=== PATIENT | male | born 1945 | race Caucasian/White ===

== ENCOUNTER → 2017-06-02 | Outpatient (CLI) | payer BC | END | disposition home or self-care (01) | LOC: US 12:09 | DX: I87.2 Venous insufficiency (chronic) (peripheral) (principal); I48.0 Paroxysmal atrial fibrillation; M71.21 Synovial cyst of popliteal space [Baker], right knee; M71.22 Synovial cyst of popliteal space [Baker], left knee; I34.0 Nonrheumatic mitral (valve) insufficiency; I12.9 Hypertensive chronic kidney disease with stage 1 through stage 4 chronic kidney disease, or unspecified chronic kidney disease; I50.9 Heart failure, unspecified | CPT/HCPCS: 93306; 93970 ==

== ENCOUNTER 2017-11-07 08:14 | Outpatient (CLI) | payer BC ==
[~2017-11-07] VITALS: Ht 177.8 cm; Wt 128.8 kg
[2017-11-07] VITALS (9 sets, daily range): BP systolic 137–167; BP diastolic 68–90
[~2017-11-07 08:14] MED LIST: ACET325T9 PO; AMIO200T4 PO; ASPI-482 PO; ASPI-630 PO; CALC600T PO; CALC600T4 PO; CELE200C PO; CHOL400D6 PO; DABI150C PO; FURO-68 PO; LISI-334 PO; METO-239 PO; METO25TA4 PO; MULT-245 PO; OXYC-323 PO; PANT40TA5 PO; POTA20TA82 PO; TAMS0.4C97 PO; VERA360C2 PO; WARF-31 PO; [UNRECOGNIZED DRUG - OTHER]
[2017-11-07] MEDS ORDERED: APIX5TAB PO (08:52)
[2017-11-07 08:55] LABS: BASO % 1 % (0-3); EOS # 0.1 x10^3/uL (0.0-0.7); EOS % 1 % (0-3); HEMATOCRIT 48.4 % (39.0-53.0); HEMOGLOBIN 16.8 g/dL (13.0-17.5); LYMPH # 0.6 x10^3/uL (1.0-4.8); LYMPH % 9 % (24-48); MEAN CORPUSCULAR HEMOGLOBIN 31 pg (25-35); MEAN CORPUSCULAR HGB CONC 35 g/dL (31-37); MEAN CORPUSCULAR VOLUME 90 fL (79-100); MONO # 0.6 x10^3/uL (0.0-1.1); MONO % 9 % (0-9); NEUT # 5.5 x10^3uL (1.8-7.7); NEUT % 81 % (31-73); PLATELET COUNT 152 x10^3/uL (140-400); RED CELL DISTRIBUTION WIDTH 13.1 % (11.5-14.5); WHITE BLOOD COUNT 6.8 x10^3/uL (4.0-11.0)
[2017-11-07 09:04] LABS: PROTHROMBIN TIME PATIENT 12.9 SEC (11.7-14.0)
[2017-11-07] MEDS ORDERED: MIDAZOLAM HCL/PF 2 MG/2 ML VIAL. ONE (09:21)
[2017-11-07] MEDS ORDERED: fentaNYL PF VIAL 100 MCG/2 ML VIAL ONE (09:21)
[2017-11-07] MEDS ORDERED: LIDOCAINE WITH 8.4% SOD BICARB 3 ML DISP.SYRIN. ONE (10:20)
[2017-11-07] MEDS ORDERED: fentaNYL PF VIAL 100 MCG/2 ML VIAL IV ONE (10:30)
[2017-11-07] MEDS ORDERED: MIDAZOLAM HCL/PF 2 MG/2 ML VIAL. IV ONE (10:30)
[2017-11-07] MEDS ORDERED: LIDOCAINE WITH 8.4% SOD BICARB 3 ML DISP.SYRIN. IJ ONE (10:30)
--- NOTE | 2017-11-07 12:42 | RAD ---
CT-guided bone marrow biopsy. 11/07/2017 12:38 PM Indication: POLYCYTHEMIA Discussion: The risks and benefits of the procedure, including but not limited to, bleeding and infection were discussed patient. Informed consent was obtained. The patient was brought to the CT scanner and placed in the prone position. A timeout procedure was performed. [facility] Counsel[facility] CT imaging of the pelvis demonstrated left ilium amenable to bone marrow biopsy. The overlying soft tissues were prepped and draped using maximum sterile barrier technique. 1% lidocaine without epinephrine was administered for local anesthesia. Under intermittent CT guidance, an OncControl needle was advanced into the bone marrow of the left iliac crest. 2 Aspirates and 1 core biopsy samples were obtained. Samples were delivered to pathology was present at the time of procedure. The needle was removed and manual pressure held to achieve hemostasis. No immediate complications were identified. The procedure was performed under conscious sedation including continuous cardiopulmonary monitoring via dedicated sedation nurse. Sedation time: 20 minutes Impression: Successful CT-guided bone marrow biopsy of the left iliac crest . PQRS Compliance Statement: One or more of the following individualized dose reduction techniques were utilized for this examination: 1. Automated exposure control 2. Adjustment of the mA and/or kV according to patient size 3. Use of iterative reconstruction technique
== END 2017-11-07 12:09 | disposition home or self-care (01) ==
LOC: INTRAD 08:14
PROVIDERS: ATTEND Internal Medicine Hematology & Oncology
DX: D75.1 Secondary polycythemia (principal); Z88.1 Allergy status to other antibiotic agents; D64.9 Anemia, unspecified; Z79.01 Long term (current) use of anticoagulants; Z79.899 Other long term (current) drug therapy
CPT/HCPCS: 36415; 38222; 77012; 85025; 85610; 88184; 88185; 88237; 99152; J2250; J3010

== ENCOUNTER 2018-07-17 17:45 | Emergency (ER) | payer BC ==
[~2018-07-17] VITALS: Ht 177.8 cm; Wt 127.5 kg
[~2018-07-17 17:45] MED LIST changes: +APIX5TAB PO; -OXYC-323 PO; +OXYC1TAB15 PO
--- NOTE | 2018-07-17 18:32 | RAD ---
EXAM: Head CT without contrast. HISTORY: Trauma. TECHNIQUE: Computed tomographic images of the head were obtained without contrast. *One or more of the following individualized dose reduction techniques were utilized for this examination: 1. Automated exposure control. 2. Adjustment of the mA and/or kV according to patient size. 3. Use of iterative reconstruction technique. COMPARISON: None. FINDINGS: There is no acute or subacute extra-axial or intraparenchymal hemorrhage. There is no mass effect or midline shift. There is no hydrocephalus. The lpfd-notqe-tmgje matter differentiation pattern is intact. There is a suspected soft tissue hematoma along the posterior scalp near the vertex. There is ossification along the posterior falx. There aren't left greater than right maxillary sinus mucous retention cysts. The mastoid air cells are clear. There is evidence of lens surgery. No calvarial lesion is seen. IMPRESSION: 1. No acute intracranial finding. 2. Suspected posterior scalp soft tissue hematoma near the vertex. Electronically signed by: Zoey Olivares MD (07/17/2018 6:29 PM) [facility]
[2018-07-17 19:23] VITALS: BP 159/82
--- NOTE | 2018-07-17 19:47 | PHYS DOC ---
Past Medical History Past Medical History: A-Fib, Arthritis, Hypertension, Other Additional Past Medical Histor: AFIB dx 02/2013, Past Surgical History: Tonsillectomy, Other Additional Past Surgical Histo: left ankle, cryoablation Alcohol Use: None Drug Use: None Adult General Chief Complaint Chief Complaint: HEAD INJURY/TRAUMA HPI HPI Patient is a 72 year old male who presents with head injury a patio chair broke he felt back he hit his head he is on Shima Loyda no loss of consciousness no chest pain mild headache at the site only. Review of Systems Review of Systems Constitutional: Denies fever or chills [] Eyes: Denies change in visual acuity, redness, or eye pain [] HENT: Denies nasal congestion or sore throat [] Respiratory: Denies cough or shortness of breath [] All other systems were reviewed and found to be within normal limits, except as documented in this note. Allergies Allergies Allergies Coded Allergies Type Severity Reaction Last Updated Verified ciprofloxacin Allergy Intermediate "really bad headache" 07/10/13 Yes ciprofloxacin HCl Allergy Intermediate "really bad headache" 07/10/13 Yes Physical Exam Physical Exam Constitutional: Well developed, well nourished, no acute distress, non-toxic appearance. [] HENT: Normocephalic, contusion to the occiput, bilateral external ears normal, oropharynx moist, no oral exudates, nose normal. [] Eyes: PERRLA, EOMI, conjunctiva normal, no discharge. [] Neck: Normal range of motion, no tenderness, supple, no stridor. [] CPulmonary: Normal respiratory effort no increased work of breathing no obvious chest wall trauma[] Abdomen: Bowel sounds normal, soft, no tenderness, no masses, no pulsatile masses. [] Skin: Warm, dry, no erythema, no rash. [] Back: No tenderness, no CVA tenderness. [] Extremities: No tenderness, no cyanosis, no clubbing, ROM intact, no edema. [] Neurologic: Alert and oriented X 3, normal motor function, normal sensory function, no focal deficits noted. [] Psychologic: Affect normal, judgement normal, mood normal. [] Current Patient Data Vital Signs Vital Signs Date Time Temp Pulse Resp B/P (MAP) Pulse Ox O2 Delivery O2 Flow Rate FiO2 07/17/18 18:23 66 18 175/82 (113) 97 Room Air 6/3/19 17:49 98.6 98.6 EKG EKG [] Radiology/Procedures Radiology/Procedures [] Impressions: IMPRESSION: 1. No acute intracranial finding. 2. Suspected posterior scalp soft tissue hematoma near the vertex. Electronically signed by: Zoey Olivares MD (07/17/2018 6:29 PM) [facility] DICTATED and SIGNED BY: ZOEY OLIVARES MD DATE: 07/17/181828 Course & Med Decision Making Course & Med Decision Making Pertinent Labs and Imaging studies reviewed. (See chart for details) []Head CT negative patient was advised to skip tonight's dose of L Loyda we discussed the very low risk of delayed intracranial hemorrhage to watch out for any signs or symptoms of this will risk is quite low overall given the relatively low mechanism of injury. Dragon Disclaimer Dragon Disclaimer This electronic medical record was generated, in whole or in part, using a voice recognition dictation system. Departure Departure Impression: Primary Impression: Head injury Disposition: 01 HOME, SELF-CARE Condition: STABLE Patient Instructions: Head Injury, Adult, [id number] JAIRO HERNANDEZ MD Jul 17, 2018 19:47
== END 2018-07-17 19:54 | disposition home or self-care (01) ==
LOC: ER 17:45
DX: S09.90XA Unspecified injury of head, initial encounter (principal); R51 Headache; I48.91 Unspecified atrial fibrillation; I10 Essential (primary) hypertension; Z88.1 Allergy status to other antibiotic agents; W07.XXXA Fall from chair, initial encounter; Y93.89 Activity, other specified; Y92.89 Other specified places as the place of occurrence of the external cause; Y99.8 Other external cause status
CPT/HCPCS: 70450; 99284-25

== ENCOUNTER → 2018-08-15 | Outpatient (CLI) | payer BC ==
[2018-07-17 19:23] VITALS: BP 159/82
[~2018-08-15] MED LIST changes: +OXYMETAZOLINE 0.05% NASAL SPRAY 30ML BOTTLE. NS ONE; -PANT40TA5 PO; +PANT40TA77 PO
--- NOTE | 2018-08-16 12:38 | SLEEP ---
DATE OF STUDY: 08/15/2018 ATTENDING PHYSICIAN: Dr. Andre Pérez. REFERRING PHYSICIAN: Dr. Rdz. The patient is 72 years old who weighs 281 pounds with a BMI of 40. The patient's [place] score was 10. The patient underwent a split night study performed at [facility]. During the night study, the patient spent 471 minutes in bed and slept for 168 minutes with a poor sleep efficiency of 36%. Sleep latency was prolonged at 53 minutes with a REM latency of 376 minutes. Overall, sleep architecture showed increased stage 1 and stage 2 sleep, absent slow wave and significantly reduced REM sleep, which was 5% of the total sleep time. During the initial diagnostic portion of the study, the patient slept for 95 minutes. During that time, there were 14 obstructive apneas, 2 mixed apneas, no central apneas and 45 hypopneas. The patient's apnea hypopnea index was 39 per hour, with a supine index of 32 per hour. REM sleep was not seen. EKG monitoring revealed normal sinus rhythm, average heart rate 61 beats per minute. No arrhythmias observed. PLMS were seen at index of 24 per hour and 1 per hour caused EEG arousals. Nocturnal oximetry study revealed a mean oxygen saturation 90%, with the lowest of 81%. 93% of time, oxygen saturation remained between 80% and 89%. The patient was started on CPAP at 5 cm water, but he could not tolerate the pressure lower than 9 cm water. As a result, the patient's pressure was gradually increased up to 15 cm water. At the final pressure, the patient slept for 31 minutes. The patient had an AHI of 16 per hour. Respiratory events were not eliminated. The patient slept supine as well as minimal REM sleep was observed. Oxygen saturation remained in the high 80s with the spot desaturation of 81%. The patient used medium size full face mask. IMPRESSION: 1. Severe sleep apnea-hypopnea syndrome at an AHI of 39 per hour. 2. Poor sleep efficiency resulting from sleep onset and sleep maintenance insomnia. 3. Moderate PLMS without any significant EEG arousals. RECOMMENDATIONS: 1. Optimum CPAP pressure was not achieved despite reaching 15 cm water. I would recommend the patient should return to the sleep lab for full night CPAP/BiPAP titration study starting at a CPAP pressure of 15 cm water. 2. Once the patient's sleep apnea is optimally treated with PAP treatment, then follow up in 4-6 weeks to assess compliance and to document clinical improvement. 3. Weight loss is strongly advised. 4. Avoid RECREATIONAL DIRECTOR depressants. 5. Caution regarding driving until symptoms of sleep apnea resolve with positive pressure therapy. 6. The patient's insomnia should improve with positive pressure therapy. However, if it persists, then should be further evaluated and treated. PLMS does not need to be treated unless the patient has symptoms of restless legs during the day. EDMUND ARAMBULA MD DR: MADI/tez JOB#: [id number] / [id number] ANDRE Hazel MD, SABATO MD
== END | disposition home or self-care (01) ==
LOC: SLPLAB 18:42
PROVIDERS: ATTEND Internal Medicine Pulmonary Disease
DX: G47.33 Obstructive sleep apnea (adult) (pediatric) (principal)
CPT/HCPCS: 95810

== ENCOUNTER → 2018-09-05 | Outpatient (CLI) | payer BC ==
[~2018-09-05] MED LIST changes: -OXYMETAZOLINE 0.05% NASAL SPRAY 30ML BOTTLE. NS ONE; +ZOLPIDEM 5 MG TABLET. PO ONE
--- NOTE | 2018-09-06 10:45 | SLEEP ---
DATE OF STUDY: 09/05/2018 SLEEP STUDY ATTENDING PHYSICIAN: Andre Pérez MD REFERRING PHYSICIAN: Billy Rdz MD The patient is 72-year-old, who weighs 278 pounds with a BMI of 40. The patient had previous sleep study and was found to have severe HARDEEP at an AHI of 39 per hour and also had poor sleep efficiency of 36%. Optimum CPAP pressure was not achieved despite reaching a pressure of 15 cm water. As a result, he was referred back for another full night titration study. During the night study, the patient spent 419 minutes in bed and slept for 320 minutes with a much improved sleep efficiency of 76%. Sleep latency was 7 minutes with a REM latency of 85 minutes. Overall, sleep architecture showed increased stage 1 and stage 2 sleep, normal slow wave and reduced REM sleep. The patient was initially started on CPAP at 15 cm water and titrated up to 20 cm of water. Due to persistent respiratory events, the patient was switched to BiPAP starting at 24/20 and continued rest of the night. The patient slept for 63 minutes at that maximum pressure. The patient's AHI was reduced to 5 per hour, mostly from few hypopneas due to leak. Saturation was remained above 90% with the lowest of 88%. The patient used a medium size full face mask. EKG monitoring revealed average heart rate of 58 beats per minute, no sustained arrhythmias observed. PLMS were seen at index of 46 per hour and 1 per hour caused EEG arousals. It should also be noted that supine REM sleep was observed at the final BiPAP pressure. IMPRESSION: 1. Severe sleep apnea diagnosed by previous sleep study. 2. Masgalex-rk-drlbfu periodic limb movements in sleep. 3. Significantly improved sleep efficiency of 76% from previous of 36%. RECOMMENDATIONS: 1. BiPAP at 24/20, completely eliminated. The patient's sleep apnea should be used on a nightly basis. 2. Follow up in 4-6 weeks to assess compliance with BiPAP and to document clinical improvement. 3. Weight loss is strongly advised. 4. Avoid CHEF MANAGER depressants. 5. Caution regarding driving until symptoms of sleep apnea resolve with the use of BiPAP. 6. The patient should also be further evaluated for symptoms of restless legs during the day. EDMUND ARAMBULA MD DR: MADI/tez JOB#: [id number] / [id number]
== END | disposition home or self-care (01) ==
LOC: RT 18:49
PROVIDERS: ATTEND Internal Medicine Pulmonary Disease
DX: G47.33 Obstructive sleep apnea (adult) (pediatric) (principal); G47.61 Periodic limb movement disorder
CPT/HCPCS: 95811

== ENCOUNTER → 2021-01-28 | Outpatient (CLI) | payer BC ==
[~2021-01-28] MED LIST changes: -AMIO200T4 PO; +AMIO200T53 PO; -CALC600T4 PO; +CALC600T60 PO; -LISI-334 PO; +LISI20TA18 PO; +POTA20TA4 PO; -POTA20TA82 PO; -ZOLPIDEM 5 MG TABLET. PO ONE
--- NOTE | 2021-01-28 16:03 | CARD ---
MR#: [id number] Date of Study: 01/28/2021 Ordering Physician: ANGELINA LEMA, Referring Physician: ANGELINA LEMA, Tech: Sophia Quirosmalgorzatachalo [facility] APPROVED REPORT EXAM: Two-dimensional and M-mode echocardiogram with Doppler and color Doppler. Other Information Quality : Average INDICATION Congestive Heart Failure 2D DIMENSIONS Left Atrium(2D)4.4 (1.6-4.0cm)IVSd1.6 (0.7-1.1cm) Aortic Root(2D)3.4 (2.0-3.7cm)LVDd5.7 (3.9-5.9cm) LVOT Diameter2.1 (1.8-2.4cm)PWd1.6 (0.7-1.1cm) LVDs3.7 (2.5-4.0cm)FS (%) 34.7 % SV102.7 mlLVEF(%)63.2 (>50%) Aortic Valve AoV Peak Simone.149.3cm/sAoV VTI34.0cm AO Peak GR.8.9mmHgLVOT Peak Simone.118.2cm/s AO Mean GR.5mmHgAVA (VMAX)2.83cm2 Mitral Valve MV E Rghxnzie84.0cm/sMV E Peak Gr.4mmHg MV DECEL [id number] A Qtvzybia67.3cm/s MV E Mean Gr.2mmHgE/A Ratio1.2 Pulmonary Valve PV Peak Gfjokhwq57.5cm/s Tricuspid Valve TR P. Jcddzxct184mr/sRAP THLWDTUG2jvOc TR Peak Gr.30ggKnGVAB76bzGj LEFT VENTRICLE The left ventricle is normal size. There is moderate concentric left ventricular hypertrophy. The lef t ventricular systolic function is normal. The Ejection Fraction is 55-60%. There is normal LV segmen jesse wall motion. RIGHT VENTRICLE The right ventricle is mildly dilated. There is normal right ventricular wall thickness. The right ve ntricular systolic function is normal. ATRIA The left atrium is mildly dilated. The right atrium is mildly dilated. The interatrial septum is inta ct with no evidence for an atrial septal defect or patent foramen ovale as noted on 2-D or Doppler im aging. AORTIC VALVE The aortic valve is normal in structure and function. Doppler and Color Flow revealed no significant aortic regurgitation. There is no significant aortic valvular stenosis. Calculated aortic valve area is 3.1 cm2 with maximum pressure gradient of 9 mmHg and mean pressure gradient of 5 mmHg. MITRAL VALVE The mitral valve is normal in structure and function. There is no evidence of mitral valve prolapse. There is no mitral valve stenosis. Doppler and Color-flow revealed trace mitral regurgitation. TRICUSPID VALVE The tricuspid valve is normal in structure and function. Doppler and Color Flow revealed trace tricus pid regurgitation with an estimated PAP of 24 mmHg. There is no tricuspid valve stenosis. PULMONIC VALVE The pulmonic valve is not well visualized. Doppler and Color Flow revealed trace to mild pulmonic sunday vular regurgitation. GREAT VESSELS The aortic root is normal in size. The IVC is normal in size and collapses >50% with inspiration. PERICARDIAL EFFUSION There is no evidence of significant pericardial effusion. Critical Notification Critical Value: No <Conclusion> The left ventricular systolic function is normal. The Ejection Fraction is 55-60%. There is normal LV segmental wall motion. Trace mitral regurgitation. Trace tricuspid regurgitation with an estimated PAP of 24 mmHg. There is no evidence of significant pericardial effusion. Signed by : Angelina Lema, Electronically Approved : 01/28/2021 16:02:51
== END ==
LOC: ECHO 08:36
PROVIDERS: ATTEND Internal Medicine Cardiovascular Disease
DX: I37.1 Nonrheumatic pulmonary valve insufficiency (principal); I48.91 Unspecified atrial fibrillation; I51.7 Cardiomegaly
CPT/HCPCS: 93306